=== PATIENT | female | born 1990 | race Caucasian/White ===

== ENCOUNTER 2017-09-02 08:55 | Inpatient (IN) | payer MEDICAID ==
[~2017-09-02] VITALS: Ht 165.1 cm; Wt 90.0 kg
[~2017-09-02 08:55] MED LIST: ACET325T14 PO; IBUP-1222 PO; OXYC-302 PO; PREN1TAB56 PO; PROM25TA10 PO
[2017-09-19] MEDS ORDERED: ACET500C PO (11:35)
[2017-09-30] MEDS ORDERED: OXYTOCIN 30U/ 0.9% NaCL 500ML 500 ML IV ONE (06:15)
[2017-09-30] MEDS: LACTATED RINGERS 1,000 ML IV SCH ×4 (06:15→21:45)
[2017-09-30] MEDS: D5%-LACTATED RINGERS 1,000 ML IV SCH ×2 (06:15→14:15)
[2017-09-30] MEDS ORDERED: FENTANYL PF 100 MCG/2ML IVPush PRN (06:30)
[2017-09-30] MEDS ORDERED: SODIUM CITRATE/CITRIC ACID 30 ML UDC PO PRN (06:30)
[2017-09-30] MEDS ORDERED: CALCIUM CARBONATE 500 MG TAB.CHEW PO PRN (06:30)
[2017-09-30] MEDS ORDERED: FENTANYL PF 100 MCG/2ML IV PRN (06:30)
[2017-09-30] MEDS ORDERED: ONDANSETRON 2MG/ML, 2ML IVPush PRN (06:30)
[2017-09-30] MEDS ORDERED: METOCLOPRAMIDE 5 MG/ML, 2ML IVPush PRN (06:30)
[2017-09-30] MEDS ORDERED: TERBUTALINE 1 MG/ML, 1ML IVPush PRN (06:30)
[2017-09-30 06:32] LABS: BASOPHILS # (AUTO) 0.05 x10^3/uL (0-0.1); BASOPHILS % (AUTO) 0 % (0-1); EOSINOPHILS # (AUTO) 0.02 x10^3/uL (0-0.4); EOSINOPHILS % (AUTO) 0 % (1-7); LYMPHOCYTES # (AUTO) 2.25 x10^3/uL (1-3.4); LYMPHOCYTES % (AUTO) 19 % (22-44); MD NO; MEAN CORPUSCULAR HEMOGLOBIN 34.1 pg (27.0-34.8); MEAN CORPUSCULAR HGB CONC 34.6 g/dL (32.4-35.8); MEAN CORPUSCULAR VOLUME 98.4 fL (80-100); MEAN PLATELET VOLUME 9.9 fL (7.4-10.4); MONOCYTES # (AUTO) 0.75 x10^3/uL (0.2-0.8); MONOCYTES % (AUTO) 6 % (2-9); NEUTROPHILS # (AUTO) 8.94 x10^3/uL (1.8-6.8); NEUTROPHILS % (AUTO) 75 % (42-75); PLATELET COUNT 289 x10^3/uL (130-400); RED BLOOD COUNT 3.97 x10^6/uL (3.82-5.3); RED CELL DISTRIBUTION WIDTH 13.5 % (9.6-15.2)
[2017-09-30] MEDS ORDERED: NEWBORN KIT ONE (06:40)
[2017-09-30] MEDS ORDERED: OXYTOCIN 30U/ 0.9% NaCL 500ML 500 ML ONE (06:40)
[2017-09-30] MEDS ORDERED: MISOPROSTOL 25 MCG TABLET VG PRN (08:30)
[2017-09-30] MEDS ORDERED: MISOPROSTOL 25 MCG TABLET ONE (08:30)
[2017-09-30 12:34] LABS: AMPHETAMINE SCREEN, URINE Negative (Negative); BARBITURATE SCREEN, URINE Negative (Negative); BENZODIAZEPINE SCREEN, URINE Negative (Negative); CANNABINOID SCREEN, URINE Negative (Negative); COCAINE SCREEN, URINE Negative (Negative); METHADONE SCREEN, URINE Negative (Negative); OPIATE SCREEN, URINE Negative (Negative)
[2017-09-30] MEDS ORDERED: FENTANYL PF 100 MCG/2ML ONE (12:59)
[2017-09-30] MEDS ORDERED: FENTANYL/BUPIV./NS/PF 250 ML EPIDCONT ONE (13:25)
[2017-09-30] MEDS ORDERED: BUPIVACAINE 0.25% ONE (13:25)
[2017-09-30] MEDS ORDERED: FENTANYL/BUPIV./NS/PF 250 ML EPIDCONT SCH (13:45)
[2017-09-30] MEDS ORDERED: LACTATED RINGERS 1,000 ML IVBOLUS PRN (14:00)
[2017-09-30] MEDS: OXYTOCIN 30U/ 0.9% NaCL 500ML 500 ML IV SCH (14:30)
[2017-09-30] MEDS ORDERED: RHOGAM FROM BLOOD BANK 1 NOTE EA IM/IV ONE (15:00)
[2017-09-30] MEDS ORDERED: MISOPROSTOL 200 MCG TABLET PR PRN (15:00)
[2017-09-30] MEDS ORDERED: METHYLERGONOVINE 0.2 MG/ML IM PRN (15:00)
[2017-09-30] MEDS ORDERED: ONDANSETRON 2MG/ML, 2ML IV PRN (15:00)
[2017-09-30] MEDS ORDERED: IBUPROFEN 600 MG TABLET ONE (15:24)
[2017-09-30] MEDS: IBUPROFEN 600 MG TABLET PO PRN ×2 (15:28→21:22)
[2017-09-30] MEDS ORDERED: OXYcodone/APAP 5/325MG TABLET ONE (16:13)
[2017-09-30] MEDS: OXYcodone/APAP 5/325MG TABLET PO PRN ×2 (16:15→20:22)
[2017-09-30 16:20] VITALS: BP 120/67
[2017-09-30 19:18] VITALS: BP 121/79
[2017-09-30] MEDS: DOCUSATE 100 MG CAPSULE PO PRN (20:22)
[2017-09-30] MEDS ORDERED: FLU VACC QS2017-18 (36MOS+) UP/PF 0.5 ML IM-VACC ONE (21:30)
[2017-09-30 22:07] LABS: BASOPHILS # (AUTO) 0.19 x10^3/uL (0-0.1); BASOPHILS % (AUTO) 1 % (0-1); EOSINOPHILS # (AUTO) 0.05 x10^3/uL (0-0.4); EOSINOPHILS % (AUTO) 0 % (1-7); LYMPHOCYTES # (AUTO) 2.77 x10^3/uL (1-3.4); LYMPHOCYTES % (AUTO) 18 % (22-44); MD NO; MEAN CORPUSCULAR HEMOGLOBIN 33.7 pg (27.0-34.8); MEAN CORPUSCULAR HGB CONC 34.4 g/dL (32.4-35.8); MEAN PLATELET VOLUME 9.9 fL (7.4-10.4); MONOCYTES % (AUTO) 8 % (2-9); NEUTROPHILS # (AUTO) 11.51 x10^3/uL (1.8-6.8); NEUTROPHILS % (AUTO) 73 % (42-75); PLATELET COUNT 239 x10^3/uL (130-400); RED BLOOD COUNT 3.81 x10^6/uL (3.82-5.3); RED CELL DISTRIBUTION WIDTH 13.3 % (9.6-15.2)
[2017-09-30 23:30] VITALS: BP 105/65
[2017-10-01] MEDS: OXYTOCIN 30U/ 0.9% NaCL 500ML 500 ML IV SCH ×2 (00:47→10:47)
[2017-10-01 04:15] VITALS: BP 103/66
[2017-10-01] MEDS: OXYcodone/APAP 5/325MG TABLET PO PRN ×3 (05:41→11:48)
[2017-10-01] MEDS: IBUPROFEN 600 MG TABLET PO PRN ×2 (05:41→11:05)
[2017-10-01] MEDS: LACTATED RINGERS 1,000 ML IV SCH (05:45)
[2017-10-01 07:40] VITALS: BP 106/65
[2017-10-01] MEDS ORDERED: PRENATAL VIT/IRON/FA 1 EACH TABLET PO SCH (09:00)
[2017-10-01] MEDS: DOCUSATE 100 MG CAPSULE PO PRN (11:04)
[2017-10-01] MEDS ORDERED: OXYC-302 PO (15:53)
[2017-10-01] MEDS ORDERED: IBUP-1222 PO (15:54)
[2017-10-01] MEDS ORDERED: DIPH,PERTUSS(ACELL),TET VAC/PF NC IM-VACC ONE (16:10)
== END 2017-10-01 17:00 | disposition home or self-care (01) | DRG 775 ==
LOC: LDIP 09-30 05:52 → 2NW 09-30 17:12
PROVIDERS: ADMIT Obstetrics & Gynecology; ATTEND Obstetrics & Gynecology
PROC: 3E0234Z Introduction of Serum, Toxoid and Vaccine into Muscle, Percutaneous Approach (ICD-10-PCS; principal; 2017-09-30)
PROC: 10E0XZZ Delivery of Products of Conception, External Approach (ICD-10-PCS; 2017-09-30)
DX: O69.81X0 Labor and delivery complicated by cord around neck, without compression, not applicable or unspecified (principal); Z23 Encounter for immunization
CPT/HCPCS: 36415; 80307; 85025; 85461; 86850; 86900; 90686; J2790; J3010; J2590; J7120

== ENCOUNTER 2017-09-19 10:51 | Outpatient (CLI) | payer MEDICAID ==
[~2017-09-19] VITALS: Ht 167.6 cm; Wt 91.3 kg
[2017-09-19 11:09] VITALS: BP 107/69
[2017-09-19 11:28] LABS: MICROSCOPIC AUTO
[2017-09-19] MEDS ORDERED: ACET500C PO (11:35)
[2017-09-19 11:39] LABS: BASOPHILS # (AUTO) 0.06 x10^3/uL (0-0.1); BASOPHILS % (AUTO) 0 % (0-1); EOSINOPHILS # (AUTO) 0.06 x10^3/uL (0-0.4); EOSINOPHILS % (AUTO) 0 % (1-7); LYMPHOCYTES # (AUTO) 2.49 x10^3/uL (1-3.4); LYMPHOCYTES % (AUTO) 16 % (22-44); MD NO; MEAN CORPUSCULAR HEMOGLOBIN 34.7 pg (27.0-34.8); MEAN CORPUSCULAR HGB CONC 35.3 g/dL (32.4-35.8); MEAN CORPUSCULAR VOLUME 98.1 fL (80-100); MEAN PLATELET VOLUME 9.7 fL (7.4-10.4); MONOCYTES # (AUTO) 0.72 x10^3/uL (0.2-0.8); MONOCYTES % (AUTO) 5 % (2-9); NEUTROPHILS # (AUTO) 12.05 x10^3/uL (1.8-6.8); NEUTROPHILS % (AUTO) 78 % (42-75); PLATELET COUNT 275 x10^3/uL (130-400); RED BLOOD COUNT 3.96 x10^6/uL (3.82-5.3); RED CELL DISTRIBUTION WIDTH 12.7 % (9.6-15.2)
[2017-09-19 11:45] LABS: TOTAL PROTEIN,URINE RANDOM 6 mg/dL (0-12)
[2017-09-19 11:47] LABS: CREATININE,URINE RANDOM < 13.00 mg/dL
[2017-09-19 11:48] LABS: PROTEIN/CREATININE RATIO,URINE > 462 (0-200)
[2017-09-19 11:49] LABS: ALBUMIN 2.7 g/dL (3.4-5.0); ANION GAP 10 mmol/L (5-15); CALCIUM 8.1 mg/dL (8.5-10.1); CHLORIDE 112 mmol/L (98-107)
[2017-09-19 11:52] LABS: ALANINE AMINOTRANSFERASE 20 U/L (12-78); ALKALINE PHOSPHATASE 231 U/L (45-117); BILIRUBIN,TOTAL 0.3 mg/dL (0.2-1.0); CREATININE 0.73 mg/dL (0.55-1.02); TOTAL PROTEIN 6.5 g/dL (6.4-8.2)
== END 2017-09-19 13:00 | disposition home or self-care (01) ==
LOC: LDOP 10:51
PROVIDERS: ATTEND Obstetrics & Gynecology
DX: O13.3 Gestational [pregnancy-induced] hypertension without significant proteinuria, third trimester (principal); Z3A.37 37 weeks gestation of pregnancy
CPT/HCPCS: 36415; 59025; 80053; 81001; 81050; 82570; 84156; 84550; 85025; 99201; G0463